=== PATIENT | male | born 1965 | race Caucasian/White ===

== ENCOUNTER 2016-08-09 12:11 | Emergency (ER) | payer MEDICAID ==
[~2016-08-09] VITALS: Ht 182.9 cm; Wt 158.8 kg
[2016-08-09 12:25] VITALS: BP_SYST 153
--- NOTE | 2016-08-09 12:25 | NUR ---
Placed in room . Placed on receptionist doctor's office, blood pressure machine and pulse oximeter. To gown for exam. Side rails up. Traiged at bedside. C/O SOB on excertion, abd distention, swelling to thighs, activity intolerance, right hip pain. Report given to Marie MARK.
--- NOTE | 2016-08-09 12:32 | NUR ---
Note raj in EDM - 08/09/16 at 1352 by ASIA Pt brought by self, A &Ox4, pt c/o SOB with exertion , activity intolerance, abdominal distention and swelling noted on thigh, VSS, skin pink and warm, respirations even and unlabored, cap refill <3.
--- NOTE | 2016-08-09 12:32 | NUR ---
ER Dr. Gorman at bedside examining patient.
[2016-08-09 13:19] LABS: BASOPHILS % (AUTO) 0.9 % (0.0-2.0); EOSINOPHILS # (AUTO) 0.1 K/uL (0.0-0.4); EOSINOPHILS % (AUTO) 3.7 % (0.0-4.0); HEMATOCRIT 31.2 % (36-54); HEMOGLOBIN 10.5 g/dL (14.0-18.0); LYMPHOCYTES # (AUTO) 1.1 K/uL (1.0-5.5); LYMPHOCYTES % (AUTO) 33.5 % (20.5-51.5); MEAN CORPUSCULAR HEMOGLOBIN 33 pg (27-31); MEAN CORPUSCULAR HGB CONC 34 % (32-36); MEAN CORPUSCULAR VOLUME 98 fL (79.0-98.0); MONOCYTES # (AUTO) 0.4 K/uL (0.0-1.0); MONOCYTES % (AUTO) 13.5 % (1.7-9.3); NEUTROPHILS # (AUTO) 1.7 K/uL (1.8-7.7); PLATELET COUNT (AUTO) 75 K/uL (130-430); RED CELL DISTRIBUTION WIDTH 16.6 % (9.0-15.0); WHITE BLOOD COUNT (AUTO) 3.3 K/uL (4.8-10.8)
[2016-08-09 13:27] LABS: CALCIUM 8.9 mg/dL (8.4-11.0); CREATININE 1.02 mg/dL (0.55-1.30)
[2016-08-09 13:32] LABS: INR 1.4 (0.80-1.20); PROTHROMBIN TIME 15.6 SECS (9.5-12.5); TOTAL BILIRUBIN 3.9 mg/dL (0.0-1.0); TOTAL PROTEIN, SERUM 6.7 g/dL (6.4-8.3)
[2016-08-09 13:36] LABS: POTASSIUM 4.1 mmol/L (3.5-5.1)
[2016-08-09 13:46] LABS: NEUTROPHILS % (AUTO) 48.4 % (40.0-70.0)
[2016-08-09 13:52] LABS: BILIRUBIN,URINE 2+ (NEGATIVE); BLOOD, URINE NEGATIVE (NEGATIVE); CLARITY/URINE CLEAR (CLEAR); COLOR,URINE AMBER (YELLOW); GLUCOSE,URINE NEGATIVE (NEGATIVE); KETONES,URINE TRACE (NEGATIVE); LEUKOCYTE ESTERASE ,URINE TRACE (NEGATIVE); NITRITE, URINE POSITIVE (NEGATIVE); PH,URINE 5.5 (5.0-8.0); PROTEIN URINE TRACE (NEGATIVE)
[2016-08-09 14:12] LABS: UROBILINOGEN,URINE >=8 (0.2-1.0)
[2016-08-09 14:16] LABS: BACTERIA,URINE FEW /HPF (None Seen); RBC,URINE 0-3 /HPF (0-3)
[2016-08-09 14:17] LABS: HYALINE CASTS, URINE 0-10 /LPF (None Seen); MUCUS,URINE None Seen /LPF (None Seen)
[2016-08-09] MEDS ORDERED: ACT5 PO (15:09)
[2016-08-09] MEDS ORDERED: GLU500 PO (15:09)
[2016-08-09] MEDS ORDERED: LISI-209 PO (15:09)
--- NOTE | 2016-08-09 15:09 | NUR ---
Medication reconciliation completed with information provided by patient . Any prior medication reconciliation on file was reviewed and corrected.
--- NOTE | 2016-08-09 17:18 | NUR ---
Dr Brewer agreeable to order blood cultures and lactic acid before IV Levaquin administration.
--- NOTE | 2016-08-09 17:48 | NUR ---
PATIENT WILL BE TRANSPORTED TO [facility] BY [facility]. TRANSPORT WILL COME WITH A BARIATRIC GOURNEY. PATIENT WILL BE GOING TO ROOM 606B. ACCEPTING PHYSICIAN IS BRANDON WATKINS. NUMBER FOR REPORT IS [phone], EXT. [phone]. ETA FOR TRANSPORT ARRIVAL IS 1929.
[2016-08-09] MEDS ORDERED: HYDROcodone/ACETAMIN 5-325 MG TAB (NORCO/ VICODIN) PO ONE (18:00)
--- NOTE | 2016-08-09 18:00 | NUR ---
instrument and control technician called dietary to order food for patient x2, no foor received at this time
--- NOTE | 2016-08-09 18:14 | NUR ---
IV right shoulder red, flushing with resistance, there is induration at tip. IV DC. # 22 gauge angiocath placed to right wrist. Use of asceptic technique. Opsite placed over site. Blood return noted. Blood for lab drawn from site. Flushed with 10 cc of normal saline. No evidence of infiltration noted. Patient tolerated well.
--- NOTE | 2016-08-09 18:15 | NUR ---
Pt's blood sugar 134, crackers and juice given to patient since no sandwich or food tray obtained from dietary.
[2016-08-09 20:15] VITALS: BP_SYST 132
--- NOTE | 2016-08-09 20:16 | NUR ---
Patient to be transferred to [facility] . Is being transferred due to higher level of care. Receiving facility has accepting physician and available space. ER physician has signed transfer form. Patient or responsible constitution party has agreed to transfer and signed form. Patient belongings inventoried and will be sent with patient. Copy of nursing notes, lab reports, EKG, Physicians Orders and X-rays to be sent with patient. Report called to Jessica MARK at receiving facility. Receiving physician is Monica. ambulance service has been called for transfer, ambulance present at ER at this time .
== END 2016-08-09 20:16 | disposition short-term general hospital (02) ==
LOC: EDBD 12:11 → SED 12:11
DX: R14.0 Abdominal distension (gaseous) (principal); R06.00 Dyspnea, unspecified; R60.0 Localized edema; E11.9 Type 2 diabetes mellitus without complications; I10 Essential (primary) hypertension; E66.01 Morbid (severe) obesity due to excess calories
CPT/HCPCS: 36415; 71010; 74176; 80053; 81000; 83605; 83690; 83880; 84484; 85025; 85610; 85730; 87040; 87086; 93005; 96365; 99285; J1956